=== PATIENT | female | born 1940 | race Caucasian/White ===

== ENCOUNTER → 2024-11-25 09:01 | Outpatient (REF) | payer MEDICARE, SELFPAY | LOC: RCS 09:01 | PROVIDERS: ATTENDING PHYSICIAN Physician Assistant; FAMILY PHYSICIAN Family Medicine | DX: I35.0 Nonrheumatic aortic (valve) stenosis (principal); I25.10 Atherosclerotic heart disease of native coronary artery without angina pectoris | CPT/HCPCS: 93306 ==